=== PATIENT | female | born 1990 | race Native Hawaiian/Other Pacific Islander ===

== ENCOUNTER 2016-07-28 13:27 | Outpatient (CLI) | payer OTHER | END 2016-07-28 19:31 | disposition home or self-care (01) | LOC: LAB 13:27 | DX: R10.84 Generalized abdominal pain (principal) | CPT/HCPCS: 86318 ==

== ENCOUNTER 2021-08-23 09:52 | Outpatient (CLI) | payer OTHER | END 2021-08-23 19:01 | disposition home or self-care (01) | LOC: RAD 09:52 | PROVIDERS: ATTEND Nurse Practitioner Family | DX: R07.81 Pleurodynia (principal) ==